=== PATIENT | male | born 1980 | race Caucasian/White ===

== ENCOUNTER 2021-02-08 17:05 | Emergency (ER) | payer BC, OTHER ==
[~2021-02-08] VITALS: Ht 175 cm; Wt 67.0 kg
--- NOTE | 2021-02-08 17:46 | ED Chest Pain ---
General Stated Complaint: CP Source: patient Exam Limitations: no limitations History of Present Illness Date Seen by Provider: Feb 08, 2021 Time Seen by Provider: 17:43 Initial Comments To ER with reports of a burning/sharp sensation to the left anterior upper chest. He denies any shortness of breath but did have some nausea with this. No fevers or chills. This started while he was driving today at about 2 PM. He has no history of cardiac disorders. He does report that he has a history of anxiety, smokes marijuana for this, takes medication for it as well. He has a history of a panic attack and had chest pain with that but states that he does feel anxious now but it is not the same as when he had his last episode of chest pain/panic attack in the remote past. he does not smoke cigarettes, does not have high cholesterol, does not have diabetes or hypertension to his knowledge. Timing/Duration: 1-3 hours Severity/Quality: moderate Location: central Activities at Onset: none ASA po DIRECTOR AIRPORT OPERATIONS: No NTG SL DIRECTOR AIRPORT OPERATIONS: No Associated Symptoms: nausea/vomiting Allergies and Home Medications Allergies Coded Allergies: No Known Drug Allergies (Unverified , 02/08/21) Patient Home Medication List Home Medication List Reviewed: Yes Review of Systems Review of Systems Constitutional: see HPI; No chills, No fever EENTM: No Symptoms Reported Respiratory: No Symptoms Reported Cardiovascular: See HPI, Chest Pain Gastrointestinal: No Symptoms Reported Genitourinary: No Symptoms Reported Musculoskeletal: no symptoms reported Skin: no symptoms reported Psychiatric/Neurological: No Symptoms Reported Endocrine: No Symptoms Reported Hematologic/Lymphatic: No Symptoms Reported Physical Exam Vital Signs Vital Signs - First Documented 02/08/21 17:31 Temp 36.3 Pulse 100 Resp 18 B/P (MAP) 156/100 (118) Pulse Ox 100 O2 Delivery Room Air Capillary Refill : Height, Weight, BMI Height: '" Weight: lbs. oz. kg; BMI Method: General Appearance: No Apparent Distress, WD/WN Neck: Full Range of Motion, Normal Inspection Respiratory: No Accessory Muscle Use, No Respiratory Distress Cardiovascular: Regular Rate, Rhythm, Normal Peripheral Pulses Gastrointestinal: Normal Bowel Sounds, Non Tender, Soft Extremity: Normal Capillary Refill, Normal Inspection Neurologic/Psychiatric: Alert, Oriented x3 Skin: Normal Color, Warm/Dry Progress/Results/Core Measures Results/Orders Lab Results Laboratory Tests Test 02/08/21 17:43 Range/Units White Blood Count 7.2 4.3-11.0 10^3/uL Red Blood Count 5.09 4.30-5.52 10^6/uL Hemoglobin 16.2 13.3-17.7 g/dL Hematocrit 48 40-54 % Mean Corpuscular Volume 95 80-99 fL Mean Corpuscular Hemoglobin 32 25-34 pg Mean Corpuscular Hemoglobin Concent 34 32-36 g/dL Red Cell Distribution Width 11.5 10.0-14.5 % Platelet Count 165 130-400 10^3/uL Mean Platelet Volume 9.8 9.0-12.2 fL Immature Granulocyte % (Auto) 1 % Neutrophils (%) (Auto) 68 42-75 % Lymphocytes (%) (Auto) 24 12-44 % Monocytes (%) (Auto) 5 0-12 % Eosinophils (%) (Auto) 1 0-10 % Basophils (%) (Auto) 1 0-10 % Neutrophils # (Auto) 4.9 1.8-7.8 10^3/uL Lymphocytes # (Auto) 1.7 1.0-4.0 10^3/uL Monocytes # (Auto) 0.4 0.0-1.0 10^3/uL Eosinophils # (Auto) 0.1 0.0-0.3 10^3/uL Basophils # (Auto) 0.1 0.0-0.1 10^3/uL Immature Granulocyte # (Auto) 0.1 0.0-0.1 10^3/uL Prothrombin Time 12.7 12.2-14.7 SEC INR Comment 0.9 0.8-1.4 Activated Partial Thromboplast Time 28 24-35 SEC D-Dimer <= 0.27 0.00-0.49 UG/ML Sodium Level 140 135-145 MMOL/L Potassium Level 3.7 3.6-5.0 MMOL/L Chloride Level 103 98-107 MMOL/L Carbon Dioxide Level 26 21-32 MMOL/L Anion Gap 11 5-14 MMOL/L Blood Urea Nitrogen 20 H 7-18 MG/DL Creatinine 1.27 0.60-1.30 MG/DL Estimat Glomerular Filtration Rate 63 BUN/Creatinine Ratio 16 Glucose Level 106 H 70-105 MG/DL Calcium Level 9.4 8.5-10.1 MG/DL Corrected Calcium 9.0 8.5-10.1 MG/DL Magnesium Level 2.1 1.6-2.4 MG/DL Total Bilirubin 0.4 0.1-1.0 MG/DL Aspartate Amino Transf (AST/SGOT) 21 5-34 U/L Alanine Aminotransferase (ALT/SGPT) 47 0-55 U/L Alkaline Phosphatase 63 40-136 U/L Myoglobin 46.2 10.0-92.0 NG/ML Troponin I < 0.028 <0.028 NG/ML B-Type Natriuretic Peptide < 10.0 <100.0 PG/ML Total Protein 6.9 6.4-8.2 GM/DL Albumin 4.5 3.2-4.5 GM/DL My Orders Orders - VERÓNICA COCHRAN [employer] Cbc With Automated Diff (02/08/21 17:34) Magnesium (02/08/21 17:34) Chest 1 View, Ap/Pa Only (02/08/21 17:34) Ekg Tracing (02/08/21 17:34) Comprehensive Metabolic Panel (02/08/21 17:34) Myoglobin Serum (02/08/21 17:34) Protime With Inr (02/08/21 17:34) Partial Thromboplastin Time (02/08/21 17:34) O2 (02/08/21 17:34) Monitor-Rhythm Ecg Trace Only (02/08/21 17:34) Lipid Panel (02/09/21 06:00) Ed Iv/Invasive Line Start (02/08/21 17:34) Bnp [place] (02/08/21 17:34) Fibrin Degradation Products (02/08/21 17:34) Lorazepam Injection (Ativan Injection) (02/08/21 18:00) Aspirin Chewable Tablet (Baby Aspirin Ch (02/08/21 18:00) Troponin I [place] (02/08/21 17:43) Medications Given in ED Current Medications Medications Dose Ordered Sig/Edmundo Route Start Time Stop Time Status Last Admin Dose Admin Aspirin 324 mg ONCE ONCE PO 02/08/21 18:00 02/08/21 18:01 DC 02/08/21 18:06 324 MG Lorazepam 0.5 mg ONCE PRN IVP 02/08/21 18:00 02/08/21 18:07 0.5 MG Vital Signs/I&O 02/08/21 02/08/21 17:31 18:23 Temp 36.3 Pulse 100 86 Resp 18 18 B/P (MAP) 156/100 (118) 129/94 Pulse Ox 100 97 O2 Delivery Room Air Room Air Departure Communication (Admissions) 1749-his EKG shows sinus rhythm with no ST segment changes and normal intervals, no ectopy 1853-his chest pain is gone after the aspirin and Ativan. Could have been related to his anxiety, costochondritis, pleuritic chest pain. His troponin was negative 3 hours after the onset of pain. He is low risk. We will discharged home Impression Primary Impression: Chest pain Disposition: 01 HOME, SELF-CARE Condition: Stable Departure-Patient Inst. Decision time for Depature: 18:26 Referrals: NO,LOCAL PHYSICIAN (PCP/Family) Primary Care Physician Patient Instructions: Chest Pain, Adult ED VERÓNICA COCHRAN APRN Feb 08, 2021 17:46
[2021-02-08 17:51] LABS: BASOPHILS # (AUTO) 0.1 10^3/uL (0.0-0.1); BASOPHILS % (AUTO) 1 % (0-10); EOSINOPHILS # (AUTO) 0.1 10^3/uL (0.0-0.3); EOSINOPHILS % (AUTO) 1 % (0-10); HEMATOCRIT 48 % (40-54); HEMOGLOBIN 16.2 g/dL (13.3-17.7); LYMPHOCYTES # (AUTO) 1.7 10^3/uL (1.0-4.0); LYMPHOCYTES % (AUTO) 24 % (12-44); MEAN CORPUSCULAR HEMOGLOBIN 32 pg (25-34); MEAN CORPUSCULAR HGB CONC 34 g/dL (32-36); MEAN CORPUSCULAR VOLUME 95 fL (80-99); MEAN PLATELET VOLUME 9.8 fL (9.0-12.2); MONOCYTES # (AUTO) 0.4 10^3/uL (0.0-1.0); MONOCYTES % (AUTO) 5 % (0-12); NEUTROPHILS # (AUTO) 4.9 10^3/uL (1.8-7.8); NEUTROPHILS % (AUTO) 68 % (42-75); PLATELET COUNT 165 10^3/uL (130-400); WHITE BLOOD COUNT 7.2 10^3/uL (4.3-11.0)
[2021-02-08] MEDS ORDERED: ASPIRIN 81 MG CHEW (CHILDREN'S ASA) PO ONE (18:00)
[2021-02-08] MEDS ORDERED: LORazepam INJ 2 MG/ML (ATIVAN) VIAL IVP PRN (18:00)
[2021-02-08 18:04] LABS: INR 0.9 (0.8-1.4); PROTHROMBIN TIME PATIENT 12.7 SEC (12.2-14.7)
[2021-02-08 18:05] LABS: ALBUMIN 4.5 GM/DL (3.2-4.5); CHLORIDE 103 MMOL/L (98-107); POTASSIUM 3.7 MMOL/L (3.6-5.0)
[2021-02-08 18:06] LABS: SODIUM 140 MMOL/L (135-145)
[2021-02-08 18:07] LABS: CALCIUM 9.4 MG/DL (8.5-10.1)
[2021-02-08 18:08] LABS: GLUCOSE 106 MG/DL (70-105); TOTAL PROTEIN 6.9 GM/DL (6.4-8.2)
[2021-02-08 18:09] LABS: CARBON DIOXIDE 26 MMOL/L (21-32)
[2021-02-08 18:10] LABS: BILIRUBIN,TOTAL 0.4 MG/DL (0.1-1.0)
[2021-02-08 18:11] LABS: ALKALINE PHOSPHATASE 63 U/L (40-136); CREATININE SERUM 1.27 MG/DL (0.60-1.30); GFR ESTIMATED 63
[2021-02-08 18:12] LABS: BUN/CREATININE RATIO 16
--- NOTE | 2021-02-08 18:13 | Diagnostic Imaging Report ---
PATIENT HISTORY: Chest pain. TECHNIQUE: Single frontal view of the chest. COMPARISON: None FINDINGS: The lung volumes are normal. No focal consolidation is seen. No large pleural effusion or pneumothorax is seen. The cardiomediastinal silhouette is normal in size and contour. No acute osseous abnormality is seen. IMPRESSION: No acute pulmonary abnormality seen. Dictated by: Dictated on workstation # [id number]
[2021-02-08 18:14] LABS: ALANINE AMINOTRANSFERASE 47 U/L (0-55)
[2021-02-08 18:15] LABS: MAGNESIUM 2.1 MG/DL (1.6-2.4)
[2021-02-08 18:55] VITALS: BP 134/88
== END 2021-02-08 18:59 | disposition home or self-care (01) ==
LOC: ER 17:07
DX: R07.89 Other chest pain (principal)
CPT/HCPCS: 36415; 71045; 80053; 83735; 83874; 83880; 84484; 85025; 85379; 85610; 85730; 93005; 93041